=== PATIENT | male | born 1980 ===

== ENCOUNTER 2017-09-01 13:22 | Emergency (ER) | payer OTHER ==
[2017-09-01 13:44] VITALS: RESP 16; TEMP 97.4
--- NOTE | 2017-09-01 15:00 | ED PDOC ---
Upper Extremity Pain/Injury Time Seen by Provider: 09/01/17 13:51 Chief Complaint (Nursing): Upper Extremity Problem/Injury Chief Complaint (Provider): Left shoulder pain, injury History Per: Patient History/Exam Limitations: no limitations Onset/Duration Of Symptoms: Mins Current Symptoms Are (Timing): Still Present Additional Complaint(s): Pt states that he was reaching up and felt a pop. Pt then has severe pain in the left shoulder. PT states he had surgery approx 10 years ago because his left shoulder dislocated 5 times prior to surgery. Past Medical History Reviewed: Historical Data, Nursing Documentation, Vital Signs Vital Signs: Last Vital Signs Temp 97.4 F L 09/01/17 13:42 Pulse 61 09/01/17 14:06 Resp 16 09/01/17 14:06 BP 113/61 09/01/17 14:06 Pulse Ox 99 09/01/17 13:42 - Medical History PMH: No Chronic Diseases - Surgical History Surgical History: No Surg Hx - Family History Family History: States: No Known Family Hx - Living Arrangements Living Arrangements: With Family - Social History Current smoker - smoking cessation education provided: No Alcohol: None Drugs: Denies - Allergies Allergies/Adverse Reactions: Allergies Allergy/AdvReac Type Severity Reaction Status Date / Time No Known Allergies Allergy Verified 09/01/17 13:41 Review of Systems ROS Statement: Except As Marked, All Systems Reviewed And Found Negative Constitutional: Negative for: Fever, Chills Musculoskeletal: Positive for: Shoulder Pain (Left ) Physical Exam - Reviewed Nursing Documentation Reviewed: Yes Vital Signs Reviewed: Yes - Physical Exam Appears: Positive for: Well, Non-toxic, No Acute Distress Head Exam: Positive for: ATRAUMATIC, NORMAL INSPECTION, NORMOCEPHALIC Skin: Positive for: Normal Color, Warm, DRY Eye Exam: Positive for: Normal appearance ENT: Positive for: Normal ENT Inspection Neck: Positive for: Normal, Painless ROM Respiratory: Negative for: Accessory Muscle Use, Respiratory Distress Pulses-Radial (L): 2+ Pulses-Radial (R): 2+ Back: Positive for: Normal Inspection Extremity: Positive for: Deformity (Left shoulder deformity, consistant with dislocation). Negative for: Normal ROM (Decreased due to pain ) Neurologic/Psych: Positive for: Alert, Oriented - ECG O2 Sat by Pulse Oximetry: 99 Medical Decision Making Medical Decision Making: Prior to x-ray patient states he was moving and trying to sit back on bed went he felt the left shoulder move and had relief of pain. x-ray normal. Seen by Dr. Green. No acute fracture or dislocation seen. Discussed with patient and family. F/u with orthopedics. Disposition - Clinical Impression Clinical Impression: Shoulder pain - Patient ED Disposition Is Patient to be Admitted: No - Disposition Referrals: Jony Lemos III, MD [Staff Provider] - Disposition: Routine/Home Disposition Time: 15:04 Condition: STABLE Instructions: Shoulder Dislocation (ED) Print Language: [place]
--- NOTE | 2017-09-01 15:13 | RAD ---
PROCEDURE: Radiographs of the Left Shoulder HISTORY: shoulder pain, deformity COMPARISON: No prior. FINDINGS: BONES: Bone alignment and mineralization are normal. There is no acute displaced fracture or bone destruction. There is a chronic Hill-Sachs deformity in the greater tuberosity of the humerus. There is a metallic screw overlying the glenoid. JOINTS: Normal. Glenohumeral and acromioclavicular joints preserved. No osteoarthritis. SOFT TISSUES: Normal. OTHER FINDINGS: None. IMPRESSION: No acute fracture or dislocation. Postsurgical changes in the right shoulder joint an old Hill-Sachs deformity in the greater tuberosity of the humerus.
[2017-09-01 15:28] VITALS: BP 137/69; PULSE 62; O2SAT 100
== END 2017-09-01 15:29 | disposition home or self-care (01) ==
LOC: H.ER 13:22
DX: M25.512 Pain in left shoulder (principal)
CPT/HCPCS: 73030; 99285; J2270; J2405